=== PATIENT | male | born 1965 | race Caucasian/White ===

== ENCOUNTER 2019-11-19 09:19 | Emergency (ER) | payer OTHER ==
[~2019-11-19] VITALS: Ht 180.3 cm; Wt 105.0 kg
[~2019-11-19 09:19] MED LIST: HYDR-3237 PO
--- NOTE | 2019-11-19 10:31 | NUR ---
PT RESTING IN BED, CALL LIGHT IN REACH.
[2019-11-19 10:43] LABS: BASOPHILS # (AUTO) 0.02 x10^3/uL (0-0.1); BASOPHILS % (AUTO) 0 % (0-1); EOSINOPHILS # (AUTO) 0.05 x10^3/uL (0-0.4); EOSINOPHILS % (AUTO) 1 % (1-7); LYMPHOCYTES # (AUTO) 1.47 x10^3/uL (1-3.4); LYMPHOCYTES % (AUTO) 23 % (22-44); MD NO; MEAN CORPUSCULAR HEMOGLOBIN 33.5 pg (27.5-34.5); MEAN CORPUSCULAR HGB CONC 33.9 g/dL (33.2-36.2); MEAN CORPUSCULAR VOLUME 98.7 fL (81-97); MEAN PLATELET VOLUME 10.2 fL (7.4-10.4); MONOCYTES # (AUTO) 0.43 x10^3/uL (0.2-0.8); MONOCYTES % (AUTO) 7 % (2-9); NEUTROPHILS % (AUTO) 69 % (42-75); PLATELET COUNT 154 x10^3/uL (130-400); RED BLOOD COUNT 4.82 x10^6/uL (4.38-5.82)
[2019-11-19 10:55] LABS: ALBUMIN 3.5 g/dL (3.4-5.0); ANION GAP 4 mmol/L (5-15); CALCIUM 8.7 mg/dL (8.5-10.1); CHLORIDE 110 mmol/L (98-107); CREATININE 0.68 mg/dL (0.7-1.3)
[2019-11-19 10:57] LABS: TROPONIN I < 0.015 ng/mL (0.000-0.045)
[2019-11-19] MEDS ORDERED: SODIUM CHLORIDE FLUSH 10ML SYR IVF ONE (11:30)
--- NOTE | 2019-11-19 11:32 | NUR ---
PT RESTING IN BED, CALL LIGHT IN REACH
--- NOTE | 2019-11-19 12:03 | NUR ---
PT TO IMAGING
[2019-11-19] MEDS ORDERED: OMNIPAQUE 350 MG/ML, 100ML BOTTLE ONE (12:45)
--- NOTE | 2019-11-19 13:07 | NUR ---
ERMD AT BEDSIDE TO DISCUSS POC
[2019-11-19 13:16] VITALS: BP 117/72
--- NOTE | 2019-11-19 13:17 | NUR ---
DISCHARGE INSTRUCTIONS REVIEWED
== END 2019-11-19 13:34 | disposition home or self-care (01) ==
LOC: ED 11:01
DX: H81.10 Benign paroxysmal vertigo, unspecified ear (principal); R55 Syncope and collapse; R07.9 Chest pain, unspecified; R06.02 Shortness of breath; R61 Generalized hyperhidrosis
CPT/HCPCS: 36415; 70450; 70496; 70498; 71045; 80048; 82040; 84484; 85025; 93005; 99285; Q9967

== ENCOUNTER 2020-12-01 22:22 | Emergency (ER) | payer BC ==
[~2020-12-01] VITALS: Ht 180.3 cm; Wt 110.0 kg
--- NOTE | 2020-12-01 22:34 | NUR ---
PT SAYS HE'S BEEN HAVING FACIAL DROOPING TO RIGHT SIDE OF FACE, STARTED ABOUT 3PM. PT WITH STRONG WAFER SLICER BUT OBVIOUS DROOP TO RIGHT SIDE, AND DROOPY EYE LID TO RIGHT EYE. PT C/O PAIN TO BACK OF NECK.
--- NOTE | 2020-12-01 22:53 | NUR ---
RIGHT SIDE OF FACE APPEARS TO BE DROOPING BU THE PT STATES THAT THE LEFT SIDE OF FACE HAS LESS FEELING AND DURING SWALLOW STUDY PT FEELS LIKE WATER WANTS TO SPILL OUT OF THE LEFT SIDE OF MOUTS, DISCUSSED FINDINGS WITH MD AND IN AN AGREEMENT
[2020-12-01 23:09] LABS: BASOPHILS % (AUTO) 1 % (0-1); EOSINOPHILS % (AUTO) 2 % (1-7); LYMPHOCYTES % (AUTO) 42 % (22-44); MEAN CORPUSCULAR HEMOGLOBIN 34.7 pg (27.5-34.5); MEAN CORPUSCULAR HGB CONC 35.3 g/dL (33.2-36.2); MEAN PLATELET VOLUME 9.9 fL (7.4-10.4); MONOCYTES % (AUTO) 10 % (2-9); NEUTROPHILS % (AUTO) 46 % (42-75); PLATELET COUNT 159 x10^3/uL (130-400); RED BLOOD COUNT 4.53 x10^6/uL (4.38-5.82); RED CELL DISTRIBUTION WIDTH 13.3 % (9.4-14.8)
[2020-12-01 23:11] LABS: ALBUMIN 3.5 g/dL (3.4-5.0); ANION GAP 5 mmol/L (5-15); CALCIUM 8.8 mg/dL (8.5-10.1); CHLORIDE 106 mmol/L (98-107)
[2020-12-01 23:16] LABS: ALANINE AMINOTRANSFERASE 120 U/L (12-78); ALKALINE PHOSPHATASE 114 U/L (45-117); BILIRUBIN,TOTAL 0.7 mg/dL (0.2-1.0); CREATININE 0.62 mg/dL (0.7-1.3); TOTAL PROTEIN 7.5 g/dL (6.4-8.2)
--- NOTE | 2020-12-01 23:40 | NUR ---
PT IN ROOM AT THIS TIME
[2020-12-02 00:25] LABS: TROPONIN I < 0.015 ng/mL (0.000-0.045)
[2020-12-02 01:07] VITALS: BP 117/79
--- NOTE | 2020-12-02 01:20 | NUR ---
Patient/Caregiver given discharge instructions and they have confirmed that they understand the instructions. Patient ambulatory with steady gait.
[2020-12-02] MEDS ORDERED: OMNIPAQUE 350 MG/ML, 100ML BOTTLE ONE (01:27)
== END 2020-12-02 01:21 | disposition home or self-care (01) ==
LOC: ED 23:00
DX: G51.0 Bell's palsy (principal); R94.5 Abnormal results of liver function studies; R94.31 Abnormal electrocardiogram [ECG] [EKG]; R11.2 Nausea with vomiting, unspecified
CPT/HCPCS: 36415; 70450; 70496; 70498; 71045; 80053; 83880; 84484; 85025; 93005; 99285; Q9967